=== PATIENT | male | born 1995 | race Caucasian/White ===

== ENCOUNTER 2018-03-14 19:07 | Emergency (ER) | payer BC ==
[~2018-03-14] VITALS: Ht 175.3 cm; Wt 68.0 kg
[2018-03-14 19:21] VITALS: BP 131/79
--- NOTE | 2018-03-14 19:41 | PHYS DOC ---
Past History Past Medical History: No Pertinent History Past Surgical History: Other Alcohol Use: Rarely Drug Use: None Adult General Chief Complaint Chief Complaint: FACE PAIN HPI HPI 22-year-old male presents with sinus congestion and facial pressure for least last 7 days. He states that the pressure seems to be getting worse and he now has some throat soreness. He describes the throat pain as a sense of swelling/ pressure. He is able to swallow without difficulty. Patient has a history of sinus infections and ear infections as an adult. He denies any change in hearing or ear pain. He denies fever or chills. Review of Systems Review of Systems Constitutional: Denies fever or chills [] Eyes: Denies change in visual acuity, redness, or eye pain [] HENT: Nasal congestion, mild sore throat [] Respiratory: Denies cough or shortness of breath [] Cardiovascular: No additional information not addressed in HPI [] GI: Denies abdominal pain, nausea, vomiting, bloody stools or diarrhea [] : Denies dysuria or hematuria [] Musculoskeletal: Denies back pain or joint pain [] Integument: Denies rash or skin lesions [] Neurologic: Denies headache, focal weakness or sensory changes [] Endocrine: Denies polyuria or polydipsia [] All other systems were reviewed and found to be within normal limits, except as documented in this note. Allergies Allergies Allergies Coded Allergies Type Severity Reaction Last Updated Verified Sulfa (Sulfonamide Antibiotics) Allergy Intermediate 03/14/18 Yes Physical Exam Physical Exam Constitutional: Well developed, well nourished, no acute distress, non-toxic appearance. [] HENT: Normocephalic, atraumatic, bilateral external ears normal, oropharynx moist, no oral exudates, nasal congestion, pain with palpation of maxillary sinuses [] Eyes: PERRLA, EOMI, conjunctiva normal, no discharge. [] Neck: Normal range of motion, mild anterior lymph node tenderness and swelling, supple, no stridor. [] Cardiovascular:Heart rate regular rhythm, no murmur [] Lungs & Thorax: Bilateral breath sounds clear to auscultation [] Abdomen: Bowel sounds normal, soft, no tenderness, no masses, no pulsatile masses. [] Skin: Warm, dry, no erythema, no rash. [] Back: No tenderness, no CVA tenderness. [] Extremities: No tenderness, no cyanosis, no clubbing, ROM intact, no edema. [] Neurologic: Alert and oriented X 3, normal motor function, normal sensory function, no focal deficits noted. [] Psychologic: Affect normal, judgement normal, mood normal. [] Current Patient Data Vital Signs Vital Signs Date Time Temp Pulse Resp B/P (MAP) Pulse Ox O2 Delivery O2 Flow Rate FiO2 03/14/18 19:21 98.1 76 16 99 Room Air EKG EKG [] Radiology/Procedures Radiology/Procedures [] Course & Med Decision Making Course & Med Decision Making Pertinent Labs and Imaging studies reviewed. (See chart for details) The patient's history and physical exam is consistent with sinus infection. I will treat him with Augmentin for 7 days. [] Dragon Disclaimer Dragon Disclaimer This electronic medical record was generated, in whole or in part, using a voice recognition dictation system. Departure Departure: Referrals: PCP,MAUDE (PCP) CORTNEY MARSHALL DO Mar 14, 2018 19:41
[2018-03-14] MEDS ORDERED: AMOX1TAB61 PO (19:43)
[2018-03-14] MEDS ORDERED: AMOXICILLIN/K CLAV 875/125MG TABLET. PO ONE (19:45)
== END 2018-03-14 19:44 | disposition home or self-care (01) ==
LOC: ER 19:07
DX: R09.81 Nasal congestion (principal); J02.9 Acute pharyngitis, unspecified
CPT/HCPCS: 99283

== ENCOUNTER 2018-04-05 14:58 | Emergency (ER) | payer BC ==
[~2018-04-05] VITALS: Ht 175.3 cm; Wt 68.0 kg
[~2018-04-05 14:58] MED LIST: AMOX1TAB61 PO
--- NOTE | 2018-04-05 15:38 | EKG ---
[address] [address] Test Date: 2018-04-05 Test Time: 15:34:03 Pat Name: AMINA JOEL Department: Room: Gender: M Insulation Worker Apprentice: : 1995 Requested By: DEVONTE AUSTIN Order Number: [id number] Reading MD: Jake Multani MD Measurements Intervals [place] Rate: 77 P: 56 RI: 136 QRS: 78 QRSD: 72 T: 20 QT: 320 QTc: 364 Interpretive Statements SINUS RHYTHM Electronically Signed On 04-08-2018 12:42:32 CDT by Jake Multani MD
--- NOTE | 2018-04-05 15:54 | RAD ---
Chest, PA and Lateral: Technique: PA and lateral views of the chest were obtained. History: GERD, chest pain, anxiety. Comparison: None. Findings: The heart and pulmonary vasculature appear within normal limits. The lungs are clear. The pleural margins are clear. Impression: No acute chest process is seen. Electronically signed by: Golden Malin MD (04/05/2018 3:51 PM) [id number]
[2018-04-05] MEDS ORDERED: LIDO:MAALOX 1:1 20 ML SINGLE DOSE. PO ONE (16:00)
--- NOTE | 2018-04-05 16:16 | PHYS DOC ---
Past History Past Medical History: Anxiety, Asthma Past Surgical History: Other Alcohol Use: Occasionally Drug Use: Marijuana Adult General Chief Complaint Chief Complaint: ANXIETY/PANIC ATTACK HPI HPI 22-year-old male with a history of GERD presenting the emergency department with a burning sensation in his chest for the past 2 weeks area did it is nonradiating intermittent and alleviated by antacids medications. He denies fevers or chills. He denies unilateral leg swelling hemoptysis personal or family history of blood clotting disorders or recent surgery immobilization. Review of systems is negative for fevers chills cough nausea or vomiting. All other review of systems is negative unless otherwise noted in history of present illness. ED course: 22-year-old male presenting the emergency department today with burning sensation in the chest. Chest x-ray and EKG were remarkable. EKG reviewed by myself shows sinus rhythm with a regular rate. Mild ST elevation in V3 consistent with benign early repo. ST segments are other ta congruent. Patient is feeling better after GI cocktail.The patient has been examined and was not found to have an emergency medical condition. The patient was then discharged home in stable condition to follow up with their primary care physician over the next 2-3 days. They were to return if their symptoms worsened or if they were concerned for any reason. They were also instructed to return to the emergency department if they were unable to get the recommended and appropriate follow-up. [id number] discharge instructions and return precautions were given. Patient's questions were answered to their satisfaction. Patient is comfortable with plan. Review of Systems Review of Systems SEE ABOVE. Current Medications Current Medications Current Medications Medications (Trade) Dose Ordered Sig/Tracey Start Time Stop Time Status Last Admin Dose Admin Multi-Ingredient Mouthwash/Gargle (Gi Cocktail) 20 ml 1X ONCE 04/05/18 16:00 04/05/18 16:01 DC 04/05/18 16:00 20 ML Allergies Allergies Allergies Coded Allergies Type Severity Reaction Last Updated Verified Sulfa (Sulfonamide Antibiotics) Allergy Intermediate 03/14/18 Yes Physical Exam Physical Exam Constitutional: Well developed, well nourished, no acute distress, non-toxic appearance. [] HENT: Normocephalic, atraumatic, bilateral external ears normal, oropharynx moist, no oral exudates, nose normal. [] Eyes: PERRLA, EOMI, conjunctiva normal, no discharge. [] Neck: Normal range of motion, no tenderness, supple, no stridor. [] Cardiovascular:Heart rate regular rhythm, no murmur [] Lungs & Thorax: Bilateral breath sounds clear to auscultation [] Abdomen: Bowel sounds normal, soft, no tenderness, no masses, no pulsatile masses. [] Skin: Warm, dry, no erythema, no rash. [] Back: No tenderness, no CVA tenderness. [] Extremities: No tenderness, no cyanosis, no clubbing, ROM intact, no edema. [] Neurologic: Alert and oriented X 3, normal motor function, normal sensory function, no focal deficits noted. [] Psychologic: Affect normal, judgement normal, mood normal. [] Current Patient Data Vital Signs Vital Signs Date Time Temp Pulse Resp B/P (MAP) Pulse Ox O2 Delivery O2 Flow Rate FiO2 04/05/18 14:58 97.9 82 18 99 Room Air EKG EKG [] Radiology/Procedures Radiology/Procedures [] Course & Med Decision Making Course & Med Decision Making Pertinent Labs and Imaging studies reviewed. (See chart for details) [] Dragon Disclaimer Dragon Disclaimer This electronic medical record was generated, in whole or in part, using a voice recognition dictation system. Departure Departure: Impression: Primary Impression: Chest pain Additional Impression: Anxiety Disposition: 01 HOME, SELF-CARE Condition: STABLE Referrals: PCPMAUDE (PCP) Patient Instructions: Anxiety and Panic Attacks, [id number] Additional Instructions: Thank you for allowing us to participate in your care today. Return to the emergency department you have any new or worsening symptoms, or if you are concerned for any reason. Return to emergency department if you have any new or concerning symptoms including but not limited to fever, chills, nausea, vomiting, intractable pain, any new rashes, chest pain, shortness of air , uncontrolled bleeding, difficulty breathing, and/or vision loss. Follow up with your primary care physician within 3 days. Call your Primary Doctor tomorrow and inform them of your visit today. If you do not have a primary care provider we are happy to provide you with a list of our primary care providers contact information. This condition should be evaluated by your primary care physician and any recommended consulting services for continued management within 2-3 days after discharge. If at any time, you are having difficulty getting into your primary care doctor or a specialist, return to the emergency department. Problem Qualifiers DEVONTE AUSTIN MD Apr 05, 2018 16:16
[2018-04-05 16:33] VITALS: BP 122/84
== END 2018-04-05 16:36 | disposition home or self-care (01) ==
LOC: ER 14:58
DX: F41.9 Anxiety disorder, unspecified (principal); J45.909 Unspecified asthma, uncomplicated; Z88.2 Allergy status to sulfonamides
CPT/HCPCS: 71046; 93005; 99284

== ENCOUNTER → 2018-04-15 | Outpatient (CLI) | payer BC ==
[2018-04-05 16:33] VITALS: BP 122/84
--- NOTE | 2018-04-15 09:43 | RAD ---
Abdominal ultrasound, 04/15/2018: HISTORY: Mononucleosis syndrome, Manjinder-Lanza virus positive The gallbladder is within normal limits in size. There is no sonographic evidence of cholelithiasis. The gallbladder wall is not thickened. The common hepatic duct is of normal caliber. The visualized portions of the liver and both kidneys show no abnormality. The spleen is within normal limits in size measuring 9.7 cm in craniocaudad extent. The visualized portions of the pancreatic body and head are unremarkable. Other portions of the pancreas were obscured by overlying bowel. The abdominal aorta and inferior vena cava show no abnormality. No free fluid is evident in the abdomen. IMPRESSION: No significant abnormality is detected. Electronically signed by: Abhinav Powell MD (04/15/2018 9:40 AM) [facility]
== END | disposition home or self-care (01) ==
LOC: US 08:34
PROVIDERS: ATTEND Neuromusculoskeletal Medicine & OMM
DX: B27.00 Gammaherpesviral mononucleosis without complication (principal); J45.909 Unspecified asthma, uncomplicated; Z88.2 Allergy status to sulfonamides
CPT/HCPCS: 76700

== ENCOUNTER 2018-08-11 12:47 | Emergency (ER) | payer BC ==
[~2018-08-11] VITALS: Ht 175.3 cm; Wt 69.6 kg
--- NOTE | 2018-08-11 13:37 | RAD ---
Chest, PA and Lateral: Technique: PA and lateral views of the chest were obtained. History: Chest tightness. Comparison: 04/05/2018. Findings: The heart and pulmonary vasculature appear within normal limits. The lungs are clear. The pleural margins are clear. Impression: No acute chest process is seen. Electronically signed by: Golden Malin MD (08/11/2018 1:32 PM) [facility]
[2018-08-11 13:45] LABS: BASO % 1 % (0-3); EOS # 0.3 x10^3/uL (0.0-0.7); EOS % 6 % (0-3); HEMOGLOBIN 16.2 g/dL (13.0-17.5); LYMPH # 1.6 x10^3/uL (1.0-4.8); LYMPH % 31 % (24-48); MEAN CORPUSCULAR HEMOGLOBIN 31 pg (25-35); MEAN CORPUSCULAR HGB CONC 35 g/dL (31-37); MEAN CORPUSCULAR VOLUME 88 fL (79-100); MONO # 0.4 x10^3/uL (0.0-1.1); MONO % 7 % (0-9); NEUT # 2.8 x10^3uL (1.8-7.7); NEUT % 55 % (31-73); PLATELET COUNT 264 x10^3/uL (140-400); RED BLOOD COUNT 5.21 x10^6/uL (4.30-5.70); RED CELL DISTRIBUTION WIDTH 12.4 % (11.5-14.5)
--- NOTE | 2018-08-11 13:57 | PHYS DOC ---
Past History Past Medical History: Asthma Past Surgical History: Other Additional Smoking Information: Chews tobacco Alcohol Use: Occasionally Drug Use: None Adult General Chief Complaint Chief Complaint: CHEST PAIN HPI HPI 22-year-old male presents with chest tightness. Patient has had this chest tightness for the last 2 days. It was intermittent and now feels constant. He denies shortness of breath as far as thinking is not getting enough air, but states it does feel difficult to breathe. He denies diaphoresis. This all started when he was sitting in a chair in his room. Exertion doesn't seem to make it better or worse. Patient has no significant medical history. No family history of early cardiac disease. His admits that he has GERD which he treats with Tums. Patient also has a history of asthma, but he has not been using his albuterol because he hasn't needed it. Review of Systems Review of Systems Constitutional: Denies fever or chills [] Eyes: Denies change in visual acuity, redness, or eye pain [] HENT: Denies nasal congestion or sore throat [] Respiratory: Denies cough or shortness of breath [] Cardiovascular: No additional information not addressed in HPI [] GI: Denies abdominal pain, nausea, vomiting, bloody stools or diarrhea [] : Denies dysuria or hematuria [] Musculoskeletal: Denies back pain or joint pain [] Integument: Denies rash or skin lesions [] Neurologic: Denies headache, focal weakness or sensory changes [] Endocrine: Denies polyuria or polydipsia [] All other systems were reviewed and found to be within normal limits, except as documented in this note. Allergies Allergies Allergies Coded Allergies Type Severity Reaction Last Updated Verified Sulfa (Sulfonamide Antibiotics) Allergy Intermediate 03/14/18 Yes Physical Exam Physical Exam Constitutional: Well developed, well nourished, no acute distress, non-toxic appearance. [] HENT: Normocephalic, atraumatic, bilateral external ears normal, oropharynx moist, no oral exudates, nose normal. [] Eyes: PERRLA, EOMI, conjunctiva normal, no discharge. [] Neck: Normal range of motion, no tenderness, supple, no stridor. [] Cardiovascular:Heart rate regular rhythm, no murmur [] Lungs & Thorax: Bilateral breath sounds clear to auscultation [] Abdomen: Bowel sounds normal, soft, no tenderness, no masses, no pulsatile masses. [] Skin: Warm, dry, no erythema, no rash. [] Back: No tenderness, no CVA tenderness. [] Extremities: No tenderness, no cyanosis, no clubbing, ROM intact, no edema. [] Neurologic: Alert and oriented X 3, normal motor function, normal sensory function, no focal deficits noted. [] Psychologic: Affect normal, judgement normal, mood normal. [] Current Patient Data Vital Signs Vital Signs Date Time Temp Pulse Resp B/P (MAP) Pulse Ox O2 Delivery O2 Flow Rate FiO2 08/11/18 12:47 98.0 83 15 98 Room Air Lab Results Laboratory Tests Test 08/11/18 13:32 White Blood Count 5.0 x10^3/uL (4.0-11.0) Red Blood Count 5.21 x10^6/uL (4.30-5.70) Hemoglobin 16.2 g/dL (13.0-17.5) Hematocrit 46.0 % (39.0-53.0) Mean Corpuscular Volume 88 fL (79-100) Mean Corpuscular Hemoglobin 31 pg (25-35) Mean Corpuscular Hemoglobin Concent 35 g/dL (31-37) Red Cell Distribution Width 12.4 % (11.5-14.5) Platelet Count 264 x10^3/uL (140-400) Neutrophils (%) (Auto) 55 % (31-73) Lymphocytes (%) (Auto) 31 % (24-48) Monocytes (%) (Auto) 7 % (0-9) Eosinophils (%) (Auto) 6 % (0-3) H Basophils (%) (Auto) 1 % (0-3) Neutrophils # (Auto) 2.8 x10^3uL (1.8-7.7) Lymphocytes # (Auto) 1.6 x10^3/uL (1.0-4.8) Monocytes # (Auto) 0.4 x10^3/uL (0.0-1.1) Eosinophils # (Auto) 0.3 x10^3/uL (0.0-0.7) Basophils # (Auto) 0.0 x10^3/uL (0.0-0.2) EKG EKG Sinus rhythm, rate 97, normal axis, no ST elevations or depressions.[] Radiology/Procedures Radiology/Procedures [] Impressions: Chest, PA and Lateral: Technique: PA and lateral views of the chest were obtained. History: Chest tightness. Comparison: 04/05/2018. Findings: The heart and pulmonary vasculature appear within normal limits. The lungs are clear. The pleural margins are clear. Impression: No acute chest process is seen. Electronically signed by: Golden Malin MD (08/11/2018 1:32 PM) [facility] DICTATED AND SIGNED BY: GOLDEN MALIN MD DATE: 08/11/18 1331 CC: CORTNEY MARSHALL DO; PCP,AMUDE Course & Med Decision Making Course & Med Decision Making Pertinent Labs and Imaging studies reviewed. (See chart for details) The patient's labs are unremarkable. His troponin is negative. His EKG is unremarkable. His chest x-ray is unremarkable. I have ordered an albuterol nebulizer to see if this helps the patient. His symptoms do not appear to be cardiac in nature. The albuterol did not seem to make a difference. Her further conversation with the patient, he believes that this may be reflux. I recommended Zantac and/or omeprazole treatment for the next week and follow-up with his PCP. He is stable for discharge at this time. [] Dragon Disclaimer Dragon Disclaimer This electronic medical record was generated, in whole or in part, using a voice recognition dictation system. Departure Departure: Impression: Primary Impression: Chest pain, non-cardiac Additional Impression: GERD (gastroesophageal reflux disease) Disposition: HOME, SELF-CARE Condition: STABLE Referrals: PCPMAUDE (PCP) Patient Instructions: Chest Pain (Nonspecific), [id number] Problem Qualifiers CORTNEY MARSHALL DO Aug 11, 2018 13:57
[2018-08-11 13:59] LABS: ALBUMIN 4.2 g/dL (3.4-5.0); ALBUMIN/GLOBULIN RATIO 1.3 (1.0-1.7); CALCIUM 9.4 mg/dL (8.5-10.1); GFR 94.3; POTASSIUM 4.4 mmol/L (3.5-5.1); TOTAL BILIRUBIN 0.7 mg/dL (0.2-1.0); TOTAL PROTEIN 7.4 g/dL (6.4-8.2)
[2018-08-11] MEDS ORDERED: ALBUTEROL SULFATE 2.5 MG/3 ML NEBU. NEB ONE (14:30)
[2018-08-11 15:02] VITALS: BP 122/76
--- NOTE | 2018-08-12 13:27 | EKG ---
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
== END 2018-08-11 15:03 | disposition home or self-care (01) ==
LOC: ER 12:47
DX: R07.89 Other chest pain (principal); K21.9 Gastro-esophageal reflux disease without esophagitis; J45.909 Unspecified asthma, uncomplicated; F17.220 Nicotine dependence, chewing tobacco, uncomplicated; Z88.2 Allergy status to sulfonamides
CPT/HCPCS: 36415; 71046; 80053; 84484; 85025; 93005; 94640; 99284; J7613